=== PATIENT | female | born 1995 | race Two or more races ===

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

== ENCOUNTER 2017-01-04 22:38 | Emergency (ER) | payer OTHER ==
--- NOTE | 2017-01-05 00:29 | ER Document Report ---
ED General - General Chief Complaint: Abdominal Pain Stated Complaint: ABDOMINAL PAIN Time Seen by Provider: 01/05/17 00:13 Notes: Patient is a 21 female who presents for complaint of pain in the epigastric and upper part abdomen and radiates into her chest. She says that when she gets it she feels short of breath. Patient has had this pain in the past. She is anxious seen here in August for similar pains. She's also on Nexium but has not been taking it. She has been having this pain off and on for a while. She does have a doctor but has not seen her doctor in several months. She does have a history of SVT. She denies any recent episodes of that. She denies any recent fevers or infections. No vomiting. She says that she has had decreased appetite. No other complaints at this time. TRAVEL OUTSIDE OF THE [place] IN LAST 30 DAYS: No - Related Data Allergies/Adverse Reactions: dextromethorphan HBr [From Robitussin-DM] Allergy (Verified 09/24/16 01:33) guaifenesin [From Robitussin-DM] Allergy (Verified 09/24/16 01:33) Past Medical History - Social History Smoking Status: Never Smoker Frequency of alcohol use: None Drug Abuse: None Family History: Reviewed & Not Pertinent Patient has suicidal ideation: No Patient has homicidal ideation: No Pulmonary Medical History: Reports: Hx Asthma Renal/ Medical History: Denies: Hx Peritoneal Dialysis Past Surgical History: Reports: Hx Cardiac Surgery - 2 ablations - Immunizations Immunizations up to date: Yes Hx Diphtheria, Pertussis, Tetanus Vaccination: Yes Review of Systems - Review of Systems Notes: My Normal Review Basic REVIEW OF SYSTEMS: CONSTITUTIONAL : Denies fever, chills, or sweats. Denies recent illness. EENT: Denies eye, ear, throat, or mouth pain or symptoms. Denies nasal or sinus congestion. CARDIOVASCULAR: Some chest pain RESPIRATORY: Denies cough, cold, or chest congestion. Denies shortness of breath, difficulty breathing, or wheezing. GASTROINTESTINAL: Upper abdominal pain. Denies nausea, vomiting, or diarrhea. Denies constipation. Last BM: GENITOURINARY: Denies difficulty urinating, painful urination, burning, frequency, or blood in urine. FEMALE GENITOURINARY: Denies vaginal bleeding, abnormal or irregular periods. MUSCULOSKELETAL: Denies neck or back pain or joint pain or swelling. SKIN: Denies rash or skin lesions. NEUROLOGICAL: Denies altered mental status or loss of consciousness. Denies headache. Denies weakness or paralysis or loss of use of either side. Denies problems with gait or speech. Denies sensory or motor loss. ALL OTHER SYSTEMS REVIEWED AND NEGATIVE. Physical Exam - Vital signs Vitals: Temp Pulse Resp BP Pulse Ox 97.8 F 84 18 139/87 H 100 01/04/17 23:25 01/04/17 23:25 01/04/17 23:25 01/04/17 23:25 01/04/17 23:25 - Notes Notes: General Appearance: Well nourished, alert, cooperative, no acute distress, no obvious discomfort. Vitals: reviewed, See vital signs table. Head: no swelling or tenderness to the head Eyes: PERRL, EOMI, Conjuctiva clear Mouth: No decreasd moisture Neck: Supple, no neck tenderness, No thyromegaly Lungs: No wheezing, No rales, No rhonci, No accessory muscle use, good air exchange bilaterally. Heart: Normal rate, Regular rythm, No murmur, no rub Chest wall: Tenderness to palpation over the parasternal area. Abdomen: Normal BS, soft, No rigidity, mild diffuse abdominal tenderness to palpation, No guarding, no rebound, no abdominal masses, no organomegaly Extremities: strength 5/5 in all extremities, good pulses in all extremities, no swelling or tenderness in the extremities, no edema. Skin: warm, dry, appropriate color, no rash Neuro: speech clear, oriented x 3, normal affect, responds appropriately to questions. Course - Vital Signs Vital signs: Temp Pulse Resp BP Pulse Ox 97.8 F 84 18 139/87 H 100 01/04/17 23:25 01/04/17 23:25 01/04/17 23:25 01/04/17 23:25 01/04/17 23:25 - Laboratory Result Diagrams: 01/05/17 00:35 01/05/17 00:35 Laboratory results interpreted by me: 01/05/17 01/05/17 01/05/17 00:35 00:35 00:35 MCH 26.3 L RDW 14.8 H ALT 36 H Urine Urobilinogen 4.0 H - EKG Interpretation by Me Additional EKG results interpreted by me: 01/05/17 00:29 EKG is reviewed and interpreted by me. EKG shows normal sinus rhythm with rate of [address] segment elevation or depression. Patient does have T-wave inversion in lead 3 and aVF. These are unchanged comparison to her old EKG from 09/23/2016. SC interval, QRS duration, QTC was are within normal range. 01/05/17 00:30 - Transfer of Care Notes: 01/05/17 01:27 Patient's pain seems consistent with her previous pain in the past related to gastritis. She's not been taking her Nexium. Her laboratory evaluation is unremarkable. I do not think this is cardiac disease. Do not think this is her gallbladder. I encourage her to eat a very bland diet. Encourage her to avoid NSAID medications. I encourage her strongly to take her Nexium. I encourage her follow-up with her doctor within a week for reevaluation. She's encouraged return to ER shows worsening pain, fevers, or vomiting. Patient agrees with plan and will be discharged home. Dictation of this chart was performed using voice recognition software; therefore, there may be some unintended grammatical errors. Discharge - Discharge Clinical Impression: Chest pain Qualifiers: Chest pain type: unspecified Qualified Code(s): R07.9 - Chest pain, unspecified Abdominal pain Qualifiers: Abdominal location: upper abdomen, unspecified Qualified Code(s): R10.10 - Upper abdominal pain, unspecified Condition: Good Disposition: HOME, SELF-CARE Additional Instructions: Please start taking your Nexium again. Please follow up with your doctor in 2-3 days. Please avoid NSAID medications such as Motrin, Advil, or Ibuprofen. Tylenol is safe to take. Please return to the ER if you have vomiting, worsening pain, fevers, or feel unwell. Prescriptions: Esomeprazole Magnesium [Nexium] 20 mg PO DAILY #20 capsule.dr Forms: Return to Work
[2017-01-05 00:50] LABS: ABSOLUTE BASOPHILS # (AUTO) 0.1 10^3/uL (0.0-0.2); ABSOLUTE EOSINOPHILS # (AUTO) 0.6 10^3/uL (0.0-0.6); ABSOLUTE LYMPHOCYTES (AUTO) 3.7 10^3/uL (0.5-4.7); ABSOLUTE MONOCYTES (AUTO) 0.8 10^3/uL (0.1-1.4); ABSOLUTE NEUT (AUTO) 5.2 10^3/uL (1.7-8.2); BASOPHILS % (AUTO) 1.2 % (0-2); EOSINOPHILS % (AUTO) 5.4 % (0-6); HEMATOCRIT 38.9 % (36.0-47.0); HEMOGLOBIN 12.8 g/dL (12.0-15.5); HGB HCT DIFFERENCE -0.5; LYMPHOCYTES % (AUTO) 35.5 % (13-45); MEAN CORPUSCULAR HEMOGLOBIN 26.3 pg (27.0-33.4); MEAN CORPUSCULAR VOLUME 80 fl (80-97); MONOCYTES % (AUTO) 7.8 % (3-13); RED BLOOD COUNT 4.89 10^6/uL (3.72-5.28); RED CELL DISTRIBUTION WIDTH 14.8 % (11.5-14.0); SEGMENTED NEUTROPHILS % (AUTO) 50.1 % (42-78); WHITE BLOOD COUNT 10.3 10^3/uL (4.0-10.5)
[2017-01-05 00:56] LABS: APPEARANCE,URINE CLEAR; BILIRUBIN,URINE NEGATIVE (NEGATIVE); GLUCOSE, URINE NEGATIVE (NEGATIVE); KETONES,URINE NEGATIVE (NEGATIVE); LEUKOCYTE ESTERASE,URINE NEGATIVE (NEGATIVE); NITRITE,URINE NEGATIVE (NEGATIVE); PROTEIN,URINE NEGATIVE (NEGATIVE); URINE SPECIFIC GRAVITY 1.013
[2017-01-05 01:00] LABS: ALANINE AMINOTRANSFERASE 36 U/L (5-35); ALKALINE PHOSPHATASE 69 U/L (50-135); ANION GAP 11 (5-19); ASPARTATE AMINO TRANSFERASE 23 U/L (5-30); BILIRUBIN,DIRECT 0.3 mg/dL (0.0-0.4); BILIRUBIN,TOTAL 0.5 mg/dL (0.2-1.3); BLOOD UREA NITROGEN 10 mg/dL (7-20); CALCIUM 9.2 mg/dL (8.4-10.2); CARBON DIOXIDE 26 mmol/L (22-30); CHLORIDE 105 mmol/L (98-107); CREATININE RESULT 0.69 mg/dL (0.52-1.25); GLUCOSE 93 mg/dL (75-110); LIPASE 83.9 U/L (23-300); SODIUM 141.7 mmol/L (137-145); TOTAL PROTEIN 7.2 g/dL (6.3-8.2)
[2017-01-05] MEDS ORDERED: FAMOTIDINE 20 MG TABLET PO ONE (01:20)
[2017-01-05 01:51] VITALS: BP 134/82
--- NOTE | 2017-01-05 13:55 | EKG REPORT ---
SEVERITY:- ABNORMAL ECG - SINUS RHYTHM PROBABLE LEFT VENTRICULAR HYPERTROPHY INFERIOR Q WAVES, PROBABLY NORMAL VARIATION VS INFERIOR ND AGE INDETERMINATE : Confirmed by: Lisa Portillo 05-Jan-2017 13:55:09
== END 2017-01-05 01:51 | disposition home or self-care (01) ==
LOC: ER 22:38
DX: R10.13 Epigastric pain (principal); R63.0 Anorexia; R07.9 Chest pain, unspecified; R10.817 Generalized abdominal tenderness; J45.909 Unspecified asthma, uncomplicated; Z91.14 Patient's other noncompliance with medication regimen; Z86.79 Personal history of other diseases of the circulatory system; Z88.8 Allergy status to other drugs, medicaments and biological substances; Z87.19 Personal history of other diseases of the digestive system
CPT/HCPCS: 36415; 80053; 81001; 83690; 85025; 93005; 93010; 99284

== ENCOUNTER 2017-05-30 18:18 | Emergency (ER) | payer BC, OTHER ==
--- NOTE | 2017-05-30 19:01 | ER Document Report ---
ED Medical Screen (RME) - General Chief Complaint: chest pain, shortness of breath Stated Complaint: SHORTNESS OF BREATH Time Seen by Provider: 05/30/17 18:54 Notes: Patient says she is experiencing shortness of breath along with chest pains over the past week and has had about 3 episodes of "blacking out". The most recent episode of "blacking out" was when she was laying on the bed with her fianc and he could not wake her and called her mother. The shortness of breath and chest pains come and go. The chest pain is located in the center of the chest in the region of the sternum and under the left breast. 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 At that time, she had some episodes of blacking out. She also had some in the fifth grade. She underwent the ablation treatment at [place] and that would have been about 6 or 7 years ago and she has not had any problems with her heart since then. She was told she had WPW. PMH: Asthma, seasonal allergies, GERD. TRAVEL OUTSIDE OF THE [place] IN LAST 30 DAYS: No - Related Data Allergies/Adverse Reactions: dextromethorphan HBr [From Robitussin-DM] Allergy (Verified 05/30/17 18:34) guaifenesin [From Robitussin-DM] Allergy (Verified 05/30/17 18:34) Past Medical History - Social History Chew tobacco use (# tins/day): No Frequency of alcohol use: None Drug Abuse: None Pulmonary Medical History: Reports: Hx Asthma Renal/ Medical History: Denies: Hx Peritoneal Dialysis Past Surgical History: Reports: Hx Cardiac Surgery - 2 ablations - Immunizations Immunizations up to date: Yes Hx Diphtheria, Pertussis, Tetanus Vaccination: Yes Physical Exam - Vital signs Vitals: Temp Pulse Resp BP Pulse Ox 98.7 F 103 H 18 143/97 H 143 H 05/30/17 18:35 05/30/17 18:35 05/30/17 18:35 05/30/17 18:35 05/30/17 18:35 Course - Vital Signs Vital signs: Temp Pulse Resp BP Pulse Ox 98.7 F 103 H 18 143/97 H 143 H 05/30/17 18:35 05/30/17 18:35 05/30/17 18:35 05/30/17 18:35 05/30/17 18:35
[2017-05-30 19:21] LABS: ABSOLUTE BASOPHILS # (AUTO) 0.1 10^3/uL (0.0-0.2); ABSOLUTE EOSINOPHILS # (AUTO) 0.4 10^3/uL (0.0-0.6); ABSOLUTE LYMPHOCYTES (AUTO) 2.9 10^3/uL (0.5-4.7); ABSOLUTE MONOCYTES (AUTO) 0.6 10^3/uL (0.1-1.4); ABSOLUTE NEUT (AUTO) 8.3 10^3/uL (1.7-8.2); BASOPHILS % (AUTO) 0.6 % (0-2); EOSINOPHILS % (AUTO) 3.1 % (0-6); HEMATOCRIT 39.7 % (36.0-47.0); HEMOGLOBIN 13.6 g/dL (12.0-15.5); HGB HCT DIFFERENCE 1.1; LYMPHOCYTES % (AUTO) 23.6 % (13-45); MEAN CORPUSCULAR HEMOGLOBIN 27.1 pg (27.0-33.4); MEAN CORPUSCULAR HGB CONC 34.3 g/dL (32.0-36.0); MEAN CORPUSCULAR VOLUME 79 fl (80-97); MONOCYTES % (AUTO) 5.2 % (3-13); RED BLOOD COUNT 5.01 10^6/uL (3.72-5.28); RED CELL DISTRIBUTION WIDTH 14.7 % (11.5-14.0); SEGMENTED NEUTROPHILS % (AUTO) 67.5 % (42-78); WHITE BLOOD COUNT 12.3 10^3/uL (4.0-10.5)
[2017-05-30 19:26] LABS: APPEARANCE,URINE SLIGHTLY-CLOUDY; BILIRUBIN,URINE NEGATIVE (NEGATIVE); GLUCOSE, URINE NEGATIVE (NEGATIVE); KETONES,URINE NEGATIVE (NEGATIVE); LEUKOCYTE ESTERASE,URINE TRACE (NEGATIVE); NITRITE,URINE NEGATIVE (NEGATIVE); PROTEIN,URINE NEGATIVE (NEGATIVE); URINE SPECIFIC GRAVITY 1.011
--- NOTE | 2017-05-30 19:27 | RADIOLOGY REPORT (SQ) ---
EXAM DESCRIPTION: CHEST PA/LAT COMPLETED DATE/TIME: 05/30/2017 7:15 pm REASON FOR STUDY: Chest pain, S OB, blacking out COMPARISON: 09/23/2016 EXAM PARAMETERS: NUMBER OF VIEWS: two views TECHNIQUE: Digital Frontal and Lateral radiographic views of the chest acquired. RADIATION DOSE: NA LIMITATIONS: none FINDINGS: LUNGS AND PLEURA: No opacities, masses or pneumothorax. No pleural effusion. MEDIASTINUM AND HILAR STRUCTURES: No masses or contour abnormalities. HEART AND VASCULAR STRUCTURES: Heart normal size. No evidence for failure. BONES: No acute findings. HARDWARE: None in the chest. OTHER: No other significant finding. IMPRESSION: NO SIGNIFICANT RADIOGRAPHIC FINDING IN THE CHEST. TECHNICAL DOCUMENTATION: JOB ID: [id number] [employer]- All Rights Reserved
[2017-05-30 19:46] LABS: ALANINE AMINOTRANSFERASE 30 U/L (9-52); ALKALINE PHOSPHATASE 73 U/L (38-126); ANION GAP 10 (5-19); ASPARTATE AMINO TRANSFERASE 20 U/L (14-36); BILIRUBIN,DIRECT 0.4 mg/dL (0.0-0.4); BILIRUBIN,TOTAL 0.4 mg/dL (0.2-1.3); BLOOD UREA NITROGEN 10 mg/dL (7-20); CALCIUM 9.6 mg/dL (8.4-10.2); CARBON DIOXIDE 28 mmol/L (22-30); CHLORIDE 103 mmol/L (98-107); CREATININE RESULT 0.66 mg/dL (0.52-1.25); GLUCOSE 96 mg/dL (75-110); POTASSIUM 4.3 mmol/L (3.6-5.0); SODIUM 140.8 mmol/L (137-145); TOTAL PROTEIN 7.2 g/dL (6.3-8.2)
[2017-05-30 20:09] LABS: CREATINE KINASE MB < 0.22 ng/mL (<4.55); TROPONIN I < 0.012 ng/mL
--- NOTE | 2017-05-30 21:26 | ER Document Report ---
ED Cardiac - General Chief Complaint: Chest Pain > 30 Stated Complaint: SHORTNESS OF BREATH Time Seen by Provider: 05/30/17 18:54 Mode of Arrival: Ambulatory Information source: Patient Notes: 22 yo non smoker, no etoh, non htn, non dm, non hormone, non drugs, non hyperlipedmic female c/o intermittent retstrosternal and to the right sharp chest pain that lasting 3-4 minutes for a week associated with nausea but no vomiting, this episode started 1 hour ago. Starts spontanesouly, worse with getting up and doing something. ROS: no fever, nor recent URI, no cough. PMH: GERD, WPW did ablation x 2 (last 7 years ago), Ebstein Anomoly- tricuspid valve , heart valve, Medical Dosimetrist is Dr. Petty at [facility] (no appt scheduled). Has come into ER with chest pain before never dx as cardiac related. FMH: htn, chf, DM, dad [place] age 49. At this time supine made the upper chest pain worse and is tender RUQ. TRAVEL OUTSIDE OF THE [place] IN LAST 30 DAYS: No - Related Data Allergies/Adverse Reactions: dextromethorphan HBr [From Robitussin-DM] Allergy (Verified 05/30/17 18:34) guaifenesin [From Robitussin-DM] Allergy (Verified 05/30/17 18:34) Home Medications: Current Home Medications Aspirin [Aspirin EC] 81 mg PO DAILY 05/30/17 [History] Past Medical History - General Information source: Patient, Parent - Social History Smoking Status: Never Smoker Chew tobacco use (# tins/day): No Frequency of alcohol use: None Drug Abuse: None Family History: Reviewed & Not Pertinent Patient has suicidal ideation: No Patient has homicidal ideation: No - Past Medical History Other: WPW, ablation x 2, ebstein anomoly Pulmonary Medical History: Reports: Hx Asthma Renal/ Medical History: Denies: Hx Peritoneal Dialysis Past Surgical History: Reports: Hx Cardiac Surgery - 2 ablations - Immunizations Immunizations up to date: Yes Hx Diphtheria, Pertussis, Tetanus Vaccination: Yes Review of Systems - Review of Systems Constitutional: No symptoms reported EENT: No symptoms reported Cardiovascular: See HPI Respiratory: No symptoms reported Gastrointestinal: See HPI Genitourinary: No symptoms reported Female Genitourinary: No symptoms reported Musculoskeletal: No symptoms reported Skin: No symptoms reported Hematologic/Lymphatic: No symptoms reported Neurological/Psychological: No symptoms reported Physical Exam - Vital signs Vitals: Temp Pulse Resp BP Pulse Ox 98.7 F 103 H 18 143/97 H 143 H 05/30/17 18:35 05/30/17 18:35 05/30/17 18:35 05/30/17 18:35 05/30/17 18:35 Interpretation: Normal - General General appearance: Appears well, Alert Notes: obese - HEENT Head: Normocephalic, Atraumatic Eyes: Normal Pupils: PERRL Neck: Supple. No: Lymphadenopathy - Respiratory Respiratory status: No respiratory distress Chest status: Nontender Breath sounds: Normal Chest palpation: Normal - Cardiovascular Rhythm: Regular Heart sounds: Normal auscultation Murmur: No - Abdominal Inspection: Normal Distension: No distension Bowel sounds: Normal Tenderness: Tender - RUQ Organomegaly: No organomegaly - Back Back: Normal, Nontender. No: CVA tenderness - Extremities General upper extremity: Normal inspection, Nontender, Normal color, Normal ROM , Normal temperature General lower extremity: Normal inspection, Nontender, Normal color, Normal ROM , Normal temperature, Normal weight bearing. No: Marisela's sign - Neurological Neuro grossly intact: Yes Cognition: Normal Orientation: AAOx4 Lemuel Coma Scale Eye Opening: Spontaneous Lemuel Coma Scale Verbal: Oriented [place] Coma Scale Motor: Obeys Commands Lemuel Coma Scale Total: 15 Speech: Normal Motor strength normal: LUE, RUE, LLE, RLE Sensory: Normal - Psychological Associated symptoms: Normal affect, Normal mood - Skin Skin Temperature: Warm Skin Moisture: Dry Skin Color: Normal Skin irregularity: negative: Rash Course - Re-evaluation Re-evalutation: 05/30/17 23:25 Patient feels better after the Prevacid and zofran, the chest pain resolved, she is back from ultrasound. When I laid her down supine the pain in the midline chest is no longer there. 05/30/17 23:39 Gallbladder ultrasound shows stones and sludge she is feeling better I am giving her a order for a HIDA scan with ejection fraction, a referral to Dr. Villeda and a referral to general surgery Dr. Jamison - Vital Signs Vital signs: Temp Pulse Resp BP Pulse Ox 98.7 F 103 H 19 112/74 100 05/30/17 18:35 05/30/17 18:35 05/30/17 22:01 05/30/17 22:01 05/30/17 22:01 - Laboratory Result Diagrams: 05/30/17 19:05 05/30/17 19:05 Laboratory results interpreted by me: 05/30/17 05/30/17 19:05 19:05 WBC 12.3 H MCV 79 L RDW 14.7 H Absolute Neutrophils 8.3 H Urine Blood LARGE H Urine Urobilinogen 4.0 H Ur Leukocyte Esterase TRACE H Discharge - Discharge Clinical Impression: right upper quadrant abd. pain Chest pain Qualifiers: Chest pain type: unspecified Qualified Code(s): R07.9 - Chest pain, unspecified Condition: Good Disposition: HOME, SELF-CARE Instructions: Chest Pain of Unclear Cause ([facility]), Evaluation of Upper Abdominal Pain ([facility]) Additional Instructions: take your prilosec every day low fat diet copy of labs, ekg, cxr us given to you Please complete the patient satisfaction survey if you get one, and return it.. If you do not receive a survey, then you can go to the [facility] website, [email or web address] and place your comments about your very good care. Thank you very much. It was a pleasure being your medical provider today. Forms: Follow-Up Radiology Testing Referrals: ROSIE VILLEDA MD [ACTIVE STAFF] - Follow up as needed TIN JAMISON MD [ACTIVE STAFF] - Follow up as needed
[2017-05-30] MEDS ORDERED: ONDANSETRON 4 MG TAB.RAPDIS PO ONE (21:34)
[2017-05-30] MEDS ORDERED: LANSOPRAZOLE 30 MG TAB.RAP.DR PO ONE (21:34)
[2017-05-30 23:03] VITALS: BP 112/74
--- NOTE | 2017-05-30 23:30 | RADIOLOGY REPORT (SQ) ---
EXAM DESCRIPTION: U/S ABDOMEN LIMITED W/O DOP COMPLETED DATE/TIME: 05/30/2017 11:13 pm REASON FOR STUDY: ruq tender COMPARISON: None. TECHNIQUE: Dynamic and static grayscale images acquired of the abdomen and recorded on PACS. Kimmyo josesito selected color Doppler and spectral images recorded. LIMITATIONS: None. FINDINGS: PANCREAS: No masses. No peripancreatic edema or fluid collections. LIVER: Echotexture is coarse with increased echogenicity consistent with fatty infiltration. LIVER VASCULATURE: Normal directional flow of the main portal vein and hepatic veins. GALLBLADDER: Several mobile stones and sludge. Normal wall thickness. No pericholecystic fluid. ULTRASOUND-DETECTED ZAMORA'S SIGN: Negative. INTRAHEPATIC DUCTS AND COMMON DUCT: CBD and intrahepatic ducts normal caliber. No filling defects. INFERIOR VENA CAVA: Normal flow. AORTA: No aneurysm. RIGHT KIDNEY: Normal size. Normal echogenicity. No solid or suspicious masses. No hydronephrosis. No calcifications. PERITONEAL AND RIGHT PLEURAL SPACE: No ascites or effusions. OTHER: No other significant finding. IMPRESSION: FATTY INFILTRATION OF THE LIVER. Mobile gallstones -sludge. TECHNICAL DOCUMENTATION: JOB ID: [id number] [employer]- All Rights Reserved
--- NOTE | 2017-05-31 09:01 | EKG REPORT ---
SEVERITY:- ABNORMAL ECG - SINUS RHYTHM PROBABLE LEFT VENTRICULAR HYPERTROPHY INFERIOR Q WAVES, PROBABLY NORMAL VARIATION LATERAL Q WAVES, PROBABLY NORMAL VARIATION : Confirmed by: Evelyn Allen MD 31-May-2017 09:00:15
== END 2017-05-30 23:52 | disposition home or self-care (01) ==
LOC: ER 18:18
DX: R10.11 Right upper quadrant pain (principal); R07.9 Chest pain, unspecified; R06.02 Shortness of breath
CPT/HCPCS: 99285; 36415; 87086; 82553; 84703; 85025; 80053; 81001; 84484; 85379; 71020; 76705; 93005; 93010; S0119

== ENCOUNTER → 2017-06-02 | Outpatient (CLI) | payer OTHER ==
--- NOTE | 2017-06-02 14:41 | RADIOLOGY REPORT (SQ) ---
EXAM DESCRIPTION: NM HIDA SCAN COMPLETED DATE/TIME: 06/02/2017 2:13 pm REASON FOR STUDY: RUQ PAIN (R10.11) R10.11 RIGHT UPPER QUADRANT PAIN COMPARISON: None. RADIONUCLIDE AND DOSE: DOSAGE RADIONUCLIDE: 5 millicuries Tc99m Mebrofenin. DOSAGE MORPHINE: Not required. The route of agent administration: Intravenous TECHNIQUE: Serial imaging right upper quadrant up to 60 minutes following injection of radionuclide. Patient imaged AP and Right Lateral. LIMITATIONS: None. FINDINGS: LIVER: Normal visualization without areas of photopenia. INTRA-HEPATIC BILE DUCTS: Temporal visualization normal. No dilatation. COMMON BILE DUCT: Normal without dilatation or delayed visualization. GALLBLADDER: Normal visualization. OTHER: No other significant finding. IMPRESSION: NORMAL STUDY WITHOUT CYSTIC OR COMMON DUCT OBSTRUCTION. TECHNICAL DOCUMENTATION: JOB ID: [id number] [employer]- All Rights Reserved
== END ==
LOC: RAD 12:19
PROVIDERS: ATTEND Nurse Practitioner Family
DX: K80.20 Calculus of gallbladder without cholecystitis without obstruction (principal)
CPT/HCPCS: 78226; A9537; Q9969

== ENCOUNTER 2017-07-19 20:08 | Emergency (ER) | payer OTHER ==
[2017-07-19] MEDS ORDERED: AMOXICILLIN TR/POT CLAVULANATE 500-125 MG TAB PO ONE (20:47)
--- NOTE | 2017-07-19 21:02 | ER Document Report ---
ED Oral Problem - General Chief Complaint: lip laceration Stated Complaint: FALL/LIP LACERATION Time Seen by Provider: 07/19/17 20:27 Mode of Arrival: Ambulatory Information source: Patient Notes: Patient fell off a column on her porch yesterday morning. She states her mother 's told her that it was not bad so she did not come to the ED. Upper lip is now infected swollen painful with purulent drainage. TRAVEL OUTSIDE OF THE [place] IN LAST 30 DAYS: No - HPI Patient complains to provider of: Other - Infected right upper lip Onset: Yesterday Onset: Gradual Quality of pain: Pressure, Sharp Severity: Moderate Pain Level: 2 Swollen jaw/face: Mild Associated symptoms: Other - Infected upper lip laceration Relieved by: Nothing Similar symptoms previously: No Recently seen / treated by doctor/dentist: No - Related Data Allergies/Adverse Reactions: dextromethorphan HBr [From Robitussin-DM] Allergy (Verified 07/19/17 20:13) guaifenesin [From Robitussin-DM] Allergy (Verified 07/19/17 20:13) Past Medical History - General Information source: Patient - Social History Smoking Status: Never Smoker Cigarette use (# per day): No Chew tobacco use (# tins/day): No Smoking Education Provided: No Frequency of alcohol use: None Drug Abuse: None Lives with: Parents Family History: Arthritis, CAD, COPD, CVA, DM, Hyperlipidemia, Hypertension. denies: Malignancy, Thyroid Disfunction Patient has suicidal ideation: No Patient has homicidal ideation: No - Past Medical History Cardiac Medical History: Reports: Other - WPW with ablation 2, Sushma anomaly Pulmonary Medical History: Reports: Hx Asthma EENT Medical History: Reports: None Neurological Medical History: Reports: None Endocrine Medical History: Reports: None Renal/ Medical History: Reports: None Malignancy Medical History: Reports: None GI Medical History: Reports: Hx Gastritis, Hx Gastroesophageal Reflux Disease Musculoskeltal Medical History: Reports Hx Musculoskeletal Trauma - Fractured toe Skin Medical History: Reports None Psychiatric Medical History: Reports: None Traumatic Medical History: Reports: Hx Fractures - Toe Infectious Medical History: Reports: None Past Surgical History: Reports: Hx Cardiac Surgery - 2 ablations - Immunizations Immunizations up to date: Yes Hx Diphtheria, Pertussis, Tetanus Vaccination: Yes Review of Systems - Review of Systems Constitutional: No symptoms reported EENT: Mouth pain - Infected laceration to the right upper lip Cardiovascular: No symptoms reported Respiratory: No symptoms reported Gastrointestinal: No symptoms reported Genitourinary: No symptoms reported Female Genitourinary: No symptoms reported Musculoskeletal: No symptoms reported Skin: No symptoms reported Hematologic/Lymphatic: No symptoms reported Neurological/Psychological: No symptoms reported Physical Exam - Vital signs Vitals: Temp Pulse Resp BP Pulse Ox 98.6 F 108 H 20 145/100 H 99 07/19/17 20:13 07/19/17 20:13 07/19/17 20:13 07/19/17 20:13 07/19/17 20:13 Interpretation: Normal - General General appearance: Appears well, Alert - HEENT Head: Other - Open infected wound to the right upper lip Eyes: Normal Pupils: PERRL Ears: Normal External canal: Normal Tympanic membrane: Normal Sinus: Normal Nasal: Normal Mouth/Lips: Laceration - Infected laceration to the right upper lip Mucous membranes: Normal Pharynx: Normal Neck: Normal - Respiratory Respiratory status: No respiratory distress Chest status: Nontender Breath sounds: Normal Chest palpation: Normal - Cardiovascular Rhythm: Regular Heart sounds: Normal auscultation Murmur: No - Abdominal Inspection: Normal Distension: No distension Bowel sounds: Normal Tenderness: Nontender Organomegaly: No organomegaly - Back Back: Normal, Nontender - Extremities General upper extremity: Normal inspection, Nontender, Normal color, Normal ROM , Normal temperature General lower extremity: Normal inspection, Nontender, Normal color, Normal ROM , Normal temperature, Normal weight bearing. No: Marisela's sign - Neurological Neuro grossly intact: Yes Cognition: Normal Orientation: AAOx4 Lemuel Coma Scale Eye Opening: Spontaneous Lemuel Coma Scale Verbal: Oriented [place] Coma Scale Motor: Obeys Commands Lemuel Coma Scale Total: 15 Speech: Normal Motor strength normal: LUE, RUE, LLE, RLE Sensory: Normal - Psychological Associated symptoms: Normal affect, Normal mood - Skin Skin Temperature: Warm Skin Moisture: Dry Skin Color: Normal Skin irregularity: Laceration - Infected laceration to the right upper lip Course - Re-evaluation Re-evalutation: 07/19/17 21:05 Right upper lip cleaned well with peroxide and water. Patient started on Augmentin. Mother and patient both given instructions on keeping the lip clean , the teeth brushed last and gargle with warm salt water, and to take all of her antibiotics as prescribed. Patient instructed to use Tylenol and Motrin for her pain in her mouth. Patient to follow-up with her primary doctor on Monday or Monday or to return to the emergency room for any increase in symptoms. - Vital Signs Vital signs: Temp Pulse Resp BP Pulse Ox 98.6 F 108 H 20 145/100 H 99 07/19/17 20:13 07/19/17 20:13 07/19/17 20:13 07/19/17 20:13 07/19/17 20:13 Discharge - Discharge Clinical Impression: Infected lip laceration Qualifiers: Encounter type: initial encounter Qualified Code(s): S01.511A - Laceration without foreign body of lip, initial encounter; L08.9 - Local infection of the skin and subcutaneous tissue, unspecified; L08.9 - Local infection of the skin and subcutaneous tissue, unspecified Condition: Stable Disposition: HOME, SELF-CARE Instructions: Family Physicians / Practices Additional Instructions: Oral Laceration, Not Sutured The laceration in your mouth was not sutured because the physician felt it would heal well without it. Suturing does increase the risk of infection somewhat, as germs in the wound are trapped inside. Most cuts in the mouth heal quickly with no significant scar. The wound will appear white and rough tomorrow. This unusual appearance is normal for an oral laceration, and will persist until healing is complete. You should rest for 24 hours to minimize swelling. Avoid tart or spicy foods, or hard foods which might stick in the cut (like tortilla chips), for a few days. If any signs of infection occur (swelling, redness of the skin directly over the laceration area, increasing tenderness, tender lumps below the jaw or on the sides of the neck, or fever), see the doctor immediately. Augmentin Augmentin is a mixture of amoxicillin and clavulanate. Amoxicillin is a member of the penicillin family. It covers the germs likely to cause ear, bronchial, and urinary infections better than plain penicillin. The addition of clavulanate allows it to cover staph infections of the skin, as well as resistant cases of ear and sinus infections. Your physician has chosen Augmentin for you because of the special nature of your situation. Augmentin is best taken with meals. Nausea after taking the medication is rare, but can occur. Diarrhea can occur, particularly in small children. Vaginal yeast infections, and oral thrush in infants are also common. Contact your physician if these problems occur. Allergy to penicillins is common. If you have had an allergic reaction to any drug of the penicillin family, you should never take any other penicillin. Notify your doctor at once if you develop hives, shortness of breath, swelling, or faintness. Acetaminophen Acetaminophen may be taken for pain relief or fever control. It's much safer than aspirin, offering a wider range of "safe" dosages. It is safe during . Some brand names are Tylenol, Panadol, Datril, Anacin 3, Tempra, and Liquiprin. Acetaminophen can be repeated every four hours. The following are maximum recommended dosages: WEIGHT Dose Drops Elixir Chewable( 80mg) (LBS.) drprs=droppers tsp=teaspoon 6 40 mg .4 ml (1/2) 6-11 80 mg .8 ml (full) 1/2 tsp 1 tab 12-16 120 mg 1 1/2 drprs 3/4 tsp 1 1/2 tabs 17-23 160 mg 2 drprs 1 tsp 2 tabs 24-30 240 mg 3 drprs 1 1/2 tsp 3 tabs 30-35 320 mg 2 tsp 4 tabs 36-41 360 mg 2 1/4 tsp 4 1 /2 tabs 42-47 400 mg 2 1/2 tsp 5 tabs 48-53 480 mg 3 tsp 6 tabs 54-59 520 mg 3 1/4 tsp 6 1 /2 tabs 60-64 560 mg 3 1/2 tsp 7 tabs 65-70 600 mg 3 3/4 tsp 7 1 /2 tabs 71-76 640 mg 4 tsp 8 tabs 77-82 720 mg 4 1/2 tsp 9 tabs 83-88 800 mg 5 tsp 10 tabs >89 pounds or adults 650 mg to 900 mg Acetaminophen can be repeated every four hours. Maximum daily dose not to exceed 4000 mg. These maximum recommended dosages are slightly higher than the dosages written on the product container, but these dosages are very safe and well below the toxic dosage for acetaminophen. Ibuprofen Ibuprofen is an excellent, safe drug for pain control. In addition, it has potent antiinflammatory effects which are beneficial, especially in the treatment of injuries, arthritis, or tendonitis. It's best to take ibuprofen with food. Persons with ulcer disease or allergy to aspirin should notify their physician of this before taking ibuprofen. Take the medication exactly as prescribed. Don't take additional doses unless instructed to do so by your doctor. If you develop wheezing, shortness of breath, hives, faintness, stomach pain, vomiting, or dark black stools, return for re-evaluation at once. Clean infected lip with half peroxide half warm water 2-3 times a day for 2 days no more than 2 days. Please be sure to take antibiotics until it is completed you have taken a mild that should be none left over. Please brushing teeth at least 3 times a day and gargle with salt and soda solution 1 quart of water 1 tablespoon of salt 1 teaspoon of baking soda Mixed 3 ingredients together and boil for 1 minute Placed in a covered quart jar Use 1/2 ounce of cold solution to gargle 3 times a day FOLLOW-UP CARE: If you have been referred to a physician for follow-up care, call the physician s office for an appointment as you were instructed or within the next two days. If you experience worsening or a significant change in your symptoms, notify the physician immediately or return to the Emergency Department at any time for re-evaluation. Prescriptions: Amox Tr/Potassium Clavulanate [Augmentin 875-125 Tablet] 1 tab PO BID 10 Days tablet
[2017-07-19 21:13] VITALS: BP 124/75
== END 2017-07-19 21:12 | disposition home or self-care (01) ==
LOC: ER 20:08
DX: S01.511A Laceration without foreign body of lip, initial encounter (principal); L08.9 Local infection of the skin and subcutaneous tissue, unspecified; W22.8XXA Striking against or struck by other objects, initial encounter
CPT/HCPCS: 99282